=== PATIENT | female | born 1960 | race Caucasian/White ===

== ENCOUNTER → 2019-03-02 | Outpatient (CLI) | payer OTHER ==
[~2019-03-02] MED LIST: IOPAMIDOL 370 MG/ML 200 ML INFUS..BTL INJ ONE; SODIUM CHLORIDE 0.9% 50ML 0 ML ONE; SODIUM CHLORIDE 0.9% 50ML 50 ML ONE
--- NOTE | 2019-03-02 11:50 | Diagnostic Imaging Report ---
EXAM: CT Abdomen and Pelvis WITH contrast INDICATION: Rectal bleeding, diarrhea. COMPARISON: None. TECHNIQUE: Abdomen and pelvis were scanned utilizing a multidetector helical scanner from the lung base to the pubic symphysis after administration of IV contrast. Coronal and sagittal reformations were obtained. Routine protocol was performed. Scan was performed when during portal venous phase. IV CONTRAST: 100 cc of Isovue-[id number]. ORAL CONTRAST: Water COMPLICATIONS: None RADIATION DOSE: Total DLP: 522.3 mGy*cm Dose modulation, iterative reconstruction, and/or weight based adjustment of the mA/kV was utilized to reduce the radiation dose to as low as reasonably achievable. FINDINGS: LINES and TUBES: None. LOWER THORAX: Scattered cysts in the right lower lobe. HEPATOBILIARY: Diffuse hepatic steatosis. No evidence of focal lesion. No biliary ductal dilation. GALLBLADDER: No radio-opaque stones or sludge. No wall thickening. SPLEEN: No splenomegaly. PANCREAS: No focal masses or ductal dilatation. ADRENALS: No adrenal nodules KIDNEYS/URETERS: Kidneys enhance symmetrically. No evidence of hydronephrosis, solid mass, or stone. GI TRACT: There is decompression with mild wall thickening within the sigmoid colon and rectum. No evidence of diverticulosis. No evidence of bowel obstruction. The patient is status post appendectomy per history. PELVIC ORGANS/BLADDER: Unremarkable. LYMPH NODES: No lymphadenopathy. VESSELS: Moderate atherosclerotic changes of the abdominal aorta and branch vessels. PERITONEUM / RETROPERITONEUM: No free air or fluid. BONES AND SOFT TISSUES: Status post posterior decompression and fusion from L4 through L5 with bilateral vertical charlette and pedicle screw construct. There is adjacent surgical streak artifact. There is grade 1 anterolisthesis of L3 on L4. Mild degenerative changes of lumbar spine. CONCLUSION: Decompressed sigmoid colon and rectum with mild wall thickening, which may reflect proctocolitis. Diffuse hepatic steatosis. Signed by: Dr. Ray Morales MD on 03/02/2019 11:46 AM
== END ==
LOC: CT 09:24
PROVIDERS: ATTEND Internal Medicine Gastroenterology
DX: R19.7 Diarrhea, unspecified (principal); K62.5 Hemorrhage of anus and rectum
CPT/HCPCS: 74177; Q9967